=== PATIENT | male | born 1955 | race Caucasian/White ===

== ENCOUNTER 2024-01-05 08:25 | Day surgery (SDC) | payer MEDICARE, BC, SELFPAY ==
[2023-12-20 12:30] VITALS: BMI 36.9
--- NOTE | 2023-12-20 14:42 | HPS.HSE ---
Family Physician
-
Family Physician: NO INTERVIEW UNKNOWN
Chief Complaint
-
Paroxysmal atrial fibrillation.
History of Present Illness
The patient is a 68 year old male presenting today for paroxysmal atrial fibrillation. The patient reports dyspnea on exertion and fatigue secondary to this diagnosis. He has undergone 3 previously failed cardioversions, with the last
occurring in September 2023. He is on current pharmacological therapy with Carvedilol. He has been compliant with Eliquis for oral anticoagulation. He notes that his symptoms associated with his arrhythmia greatly interfere with his activities of
daily living and overall impact his quality of life. He also hopes to be on as little medication as possible in the near future. Given all this, he would like to proceed with pulmonary vein isolation at this time. He denies any current complaints
today such as chest pain, shortness of breath at rest, palpitations, nausea, vomiting, diarrhea, lightheadedness, dizziness, cough, sore throat, or fever.
Medical History
Past Medical History
Past Medical History: Reports Other
Additional Past Medical History:
1. Paroxysmal atrial fibrillation, status post cardioversion x3; pharmacological therapy with Carvedilol, oral anticoagulation with Eliquis.
2. Hypertension.
3. Hyperlipidemia.
4. Ventricular fibrillation, status post single chamber ICD implantation 2010 and subsequent generator change 2017.
5. Coronary artery disease, status post PCI with bare metal stent to LAD 2010.
6. Chronic heart failure, reduced ejection fraction.
7. Ischemic cardiomyopathy.
8. Trivial anterior pericardial effusion on echocardiogram 04/2023.
9. Chronic venous insufficiency.
10. 2 mm calcified granuloma of right lower lobe per chest CT 12/20/2023.
11. Obstructive sleep apnea, non-compliant with device.
12. Non-insulin dependent diabetes.
13. Mild renal insufficiency.
14. Cholelithiasis, asymptomatic.
15. Colon cancer, 2014, status post partial colectomy.
16. Peripheral neuropathy.
17. Sciatica.
18. Degenerative disc disease.
19. Skin cancer, status post remote excision x2.
20. History of recurrent bilateral lower extremity cellulitis.
21. Mild thrombocytopenia.
22. Obesity, BMI 36.9.
Past Surgical History: Reports Other
Additional Past Surgical History:
1. Cardioversion x3.
2. Single chamber ICD insertion.
3. ICD generator change.
4. PCI with bare metal stent to LAD.
5. Partial colectomy.
6. Skin cancer excision x2.
7. Epidural steroid injections.
8. Multiple colonoscopies.
Social History
Tobacco: Non-smoker
Alcohol: None
Personal:
Living: With Family (in a 1 story home. )
Family History
Family History: Not pertinent
Allergies / Home Medications
Allergy/Medication List:
Home medications:
1. Eliquis 5 mg p.o. twice a day.
2. Aspirin 81 mg p.o. daily.
3. Atorvastatin 40 mg p.o. at bedtime.
4. Carvedilol 12.5 mg p.o. twice a day.
5. Eplerenone 25 mg p.o. at noon.
6. Furosemide 20 mg p.o. daily.
7. Metformin 500 mg p.o. twice a day.
8. Entresto 97-103 mg, 1 tablet p.o. twice a day.
Allergies: Neosporin.
Review of Systems
-
A 12 point ROS was completed and negative except as noted: Yes
Physical Exam
Vital Signs
Blood pressure 133/97. Heart rate 71. Respirations 18. Pulse ox 99% on room air.
Height 6 feet. Weight 123.3 kg. BMI 36.9.
Physical Exam
General: Well Developed, Well Nourished and No Apparent Distress
HEENT: NormoCephalic, Moist mucous membranes, Atraumatic and PERRLA
Respiratory: Clear
Cardiac: Irregular Rhythm
GI: Soft, Non Tender, Non Distended and Other (Obese. )
Musculoskeletal: Edema, Left Lower Extremity (+1), Edema, Right Lower Extremity (+1), Normal Gait & Station and Other (Venous stasis changes noted to bilateral lower extremities. No open wounds present. Calves soft and non-tender to palpation. )
Skin: Warm and Dry
Neuro: AO x 3 and Nonfocal/grossly intact
Laboratory Results
-
DIAGNOSTIC STUDIES as of 12/20/2023: White blood cell count 7.5. Hemoglobin 15.0. Platelet count 127,000. PT 16.6. INR 1.33. Sodium 137. Potassium 4.5. BUN 25. Creatinine 1.3. Glucose 200. Calcium 9.9. Magnesium 1.9. AST 25. ALT 29. Albumin 4.2.
Blood type O positive.
EKG 12/20/2023: Atrial fibrillation. Low voltage QRS. Poor R wave progression.
Chest CT 12/20/2023: Normal, conventional pulmonary venous anatomy. Moderate atherosclerotic vascular disease. No left atrial filling defect/thrombus identified.
Echocardiogram 04/26/2023: Technically difficult and limited study. Dilated left ventricle with severe left ventricular dysfunction with wall motion abnormalities as described. Estimated EF in the range of 20-25%. Indeterminate diastolic filling
pattern due to atrial fibrillation. Severe left atrial and moderate right atrial enlargement. No significant valvular disease. Trivial anterior pericardial effusion.
Impression/Plan
-
IMPRESSION/PLAN:
1. Paroxysmal atrial fibrillation: The patient is in need of pulmonary vein isolation with Dr. Kristofer Koch on 01/05/2024. The benefits and risks of the procedure have been explained to the patient. The patient understands these risks and wishes to
proceed. He will not be required to undergo a pre-procedural transesophageal echocardiogram as he has been complaint with his home oral anticoagulation. He is aware to hold all his medications the morning of his procedure.
[2024-01-05] VITALS (15 sets, daily range): BP systolic 100–143; BP diastolic 64–104; BMI 36.7
[2024-01-05 09:29] LABS: Glucose - Point of Care 174 mg/dl (70-99)
[2024-01-05 11:54] LABS: ACT-LR - POC 302 Seconds (116-155)
[2024-01-05 12:10] LABS: ACT-LR - POC 360 Seconds (116-155)
[2024-01-05 12:28] LABS: ACT-LR - POC 356 Seconds (116-155)
[2024-01-05 12:55] LABS: ACT-LR - POC 294 Seconds (116-155)
--- NOTE | 2024-01-05 13:36 | ITS.CL.ABL ---
[facility] - Ablation
Ablation
Procedure Report:
ELECTROPHYSIOLOGY ABLATION STUDY
DATE:: January 05, 2024 REFERRING: Dr. João Riley
INDICATION: Persistent supraventricular tachycardia in the form of atrial fibrillation. As above
HISTORY: See H and P. History of nonischemic cardiomyopathy and a single-chamber ICD with persistent atrial fibrillation and marked atrial dilation
ANTIARRHYTHMIC DRUG: Guideline based medical therapy for heart failure and no current intermittent therapy
PRE-PROCEDURE BILL: No atrial thrombus
PRESENTING RHYTHM: Atrial fibrillation
'TIME-OUT': called and confirmed.
SEDATION/ANESTHESIA: provided via the anesthesia department using general anesthesia (LMA).
INTRAVENOUS/ARTERIAL ACCESS:
Right femoral venous - 8Fr
Left femoral venous - 8 Fr, 6 Fr
Ultrasound guidance for bilateral femoral vein access was utilized by me to obtain access with demonstration of normal anatomy
CHADS-VASC Score:
HAS-Bled Score
PROCEDURE:
1. A decapolar CS catheter was placed within the CS for mapping and pacing. This was also used as the reference catheter for the 3-D map. The patient had marked left and right atrial enlargement and hypotension throughout the procedure from
anesthesia which was answered with dopamine 5 mics and Isidro-Synephrine maintaining a MAP greater than 60 mmHg. Left atrial pressure was 20 after infusion of 500 cc of normal saline
2. The intracardiac ultrasound catheter was positioned in the RA to identify the FO for targeting of transseptal puncture, assist in identification of the pulmonary vein ostia, monitoring pre and post ablation pulmonary vein flow velocities,
monitoring for 'bubble' formation during RF application as a sign of thermal injury, and to monitor for pericardial effusion during mapping and ablation procedure. Left atrial size, LV ejection fraction, and pulmonary vein flows were monitored
pre and post ablation procedure. The other valves were inspected and found to be free of significant regurgitation or stenosis.
3. Half of the calculated heparin bolus was administered prior to the first transeptal puncture. Transseptal puncture was performed to diagnose RA and LA pressure so that safety of LA mapping and ablation could be further assessed, and to access
the left atrium and pulmonary veins for mapping and ablation. This entailed advancing an 10 Romanian steerable sheath with dilator and needle apparatus into the superior vena cava and withdrawing both (monitoring intracardiac ultrasound, fluoroscopy
and tip pressure) with the tip oriented toward the atrial septum. The fossa ovalis was engaged (indicated by sudden displacement of the sheath tip as well as tenting of the fossa seen on intracardiac ultrasound). Left atrial access required a pass
with the Brockenbrough needle extended. Left atrial catheter position was confirmed by pressure monitoring (RA mean pressure 8 mm Hg and LA mean presure 14 mm Hg), LA saturation (99%), as well as fluoroscopy. The sheath was advanced over the
dilator and positioned in the left atrium. This procedure was repeated for the Agilis sheath. The remainder of the calculated heparin bolus was administered and heparin was
infused to maintain ACT at 300 -350 seconds throughout the case.
4. RA pacing was performed via the proximal decapolar poles and LA pacing was performed via the distal decapolr poles.
5. A quadrapolar catheter was first positioned at the His position for His Bundle recording which was tagged via the 3-D Navex sytem, and then passed to the RVA for RV pacing and recording.
6. The multipolar catheter and the pulsed light catheter placed in each of the LIPV, LSPV, RSPV and the RIPV.
7. Next, a 3-D map was created using Navex. A 3-D reconstructed CT image was compared to the 3-D Navex map to assist in anatomic interpretation, mapping and ablation. The CT image and the NavX image were fused.
8. Pulmonary vein and extrapulmonary lesions were given with the 4 pulmonary veins addressed ostially and anteriorly and the entire left atrial posterior wall addressed as extrapulmonary and substrate. Multipolar mapping after initial pass
demonstrated the left veins posterior wall and right supra pulmonary veins isolated with continued connection at the inferior and posterior portion of the right for pulmonary vein. The pulsed light catheter was brought back to this region and
additional deliveries rendered the vein isolated with entrance and exit block confirmed. Initial rhythm was atrial fibrillation which was converted to sinus rhythm with short salvos of multifocal atrial tachycardia after conversion to sinus rhythm
and eventually sinus rhythm with isolation of all 4 pulmonary veins and the posterior wall. The patient was noninducible for other tachyarrhythmias.
9. Relatively normal sinus node function and stable ICD function with therapies turned back on at the end of the procedure. Resting heart rates in sinus rhythm in the 50-60 range.
TOTAL FLOURO TIME: 32 minutes 243 mGy
TOTAL RF DURATION: 0 minutes
REVERSAL OF HEPARIN: 30 mg of protamine, slow IV administration. The Vascade device was deployed at the right femoral vein but as there was not adequate hemostasis this was removed and a [id number] stitch was placed in the right femoral vein
access site as well as left femoral vein access site. This in addition to manual pressure brought about hemostasis.
COMPLICATIONS:
None
Intracardiac US shows no pericardial effusion post ablation.
SUMMARY:
Complex left atrial mapping and ablation.
Isolation of all 4 pulmonary veins and left atrial posterior wall as above.
RECOMMENDATIONS:
1. Admit to monitored bed.
2. Resume anticoagulation
3. With discontinuation of general anesthesia the patient had much improved hemodynamics and were able to wean the Isidro-Synephrine and dopamine drips to off at extubation
4. Close monitoring and consider same-day discharge if meets the parameters of her same-day discharge protocol otherwise he will remain overnight
Copy to: Dr. João Riley
[2024-01-05 14:27] LABS: Glucose - Point of Care 232 mg/dl (70-99)
[2024-01-05] MEDS: LASIX 20 MG IV (16:20)
--- NOTE | 2024-01-05 17:05 | W.PN.UPDATE ---
Update Note
Progress Note Update
68 yo WM s/p PVI (same day). He feels good, no cp, sob, italo diet, voiding, EKG SR 1deg AVB, b/l groins c/d/i F08 in place. He will resume Eliquis tonight at home. Activity restrictions reviewed. He will f/u Dr. Riley in 2 mo. He is for dc/ home
after 6p if groin stable.
SUMMARY:
Complex left atrial mapping and ablation.
Isolation of all 4 pulmonary veins and left atrial posterior wall as above.
RECOMMENDATIONS:
1. Admit to monitored bed.
2. Resume anticoagulation
3. With discontinuation of general anesthesia the patient had much improved hemodynamics and were able to wean the Isidro-Synephrine and dopamine drips to off at extubation
4. Close monitoring and consider same-day discharge if meets the parameters of her same-day discharge protocol otherwise he will remain overnight
Copy to: Dr. João Riley
== END 2024-01-05 18:05 | disposition home or self-care (01) ==
LOC: CATH 08:25
PROVIDERS: ATTENDING PHYSICIAN Internal Medicine Cardiovascular Disease; FAMILY PHYSICIAN Family Medicine
DX: I48.19 Other persistent atrial fibrillation (principal); I47.10 Supraventricular tachycardia, unspecified; I11.0 Hypertensive heart disease with heart failure; I50.22 Chronic systolic (congestive) heart failure; I25.10 Atherosclerotic heart disease of native coronary artery without angina pectoris; Z95.5 Presence of coronary angioplasty implant and graft; I25.5 Ischemic cardiomyopathy; E78.5 Hyperlipidemia, unspecified; G47.33 Obstructive sleep apnea (adult) (pediatric); E11.9 Type 2 diabetes mellitus without complications; I87.2 Venous insufficiency (chronic) (peripheral); Z85.038 Personal history of other malignant neoplasm of large intestine; Z85.828 Personal history of other malignant neoplasm of skin; Z95.810 Presence of automatic (implantable) cardiac defibrillator; E66.9 Obesity, unspecified; Z68.36 Body mass index [BMI] 36.0-36.9, adult; Z79.01 Long term (current) use of anticoagulants; Z79.82 Long term (current) use of aspirin; Z79.84 Long term (current) use of oral hypoglycemic drugs
CPT/HCPCS: C1732; C1894; C1769; C1730; C1733; C1759; C1892; 76937; 82962; 85347; 86900; 86901; 93005; 93656; C1760

== ENCOUNTER 2024-06-19 05:50 | Day surgery (SDC) | payer MEDICARE, BC, SELFPAY ==
[2024-06-11 11:09] VITALS: BMI 38.1
[2024-06-19] VITALS (11 sets, daily range): BP systolic 101–133; BP diastolic 61–87; BMI 36.9
[2024-06-19 06:42] LABS: Glucose - Point of Care 191 mg/dl (70-99)
[2024-06-19] MEDS: TYLENOL 1000 MG PO (07:12)
[2024-06-19 08:55] LABS: ACT-LR - POC 334 Seconds (116-155)
[2024-06-19 09:02] LABS: Glucose - Point of Care 173 mg/dl (70-99)
[2024-06-19 09:55] LABS: ACT-LR - POC 356 Seconds (116-155)
--- NOTE | 2024-06-19 10:07 | ITS.CL.ABL ---
[facility] - Ablation
Ablation
Procedure Report:
ELECTROPHYSIOLOGY ABLATION STUDY
�
DATE:: June 19, 2024�����������������������������REFERRING: Dr. Miguel Kinsey
�
INDICATION: Persistent supraventricular tachycardia in the form of atrial fibrillation.��Prior pulsed field ablation in November 2023 with PVI plus left atrial posterior wall. Presents with atypical flutter which is symptomatic and also has a
tachycardia due to cardiomyopathy
�
HISTORY: See H and P.��As above
�
ANTIARRHYTHMIC DRUG: Carvedilol
�
PRE-PROCEDURE BILL: No atrial thrombus on intracardiac ultrasound
�
PRESENTING RHYTHM: Atrial flutter which was determined to be typical 290 ms
�
'TIME-OUT':��called and confirmed.
�
SEDATION/ANESTHESIA:��provided via the anesthesia department using general anesthesia (LMA).
�
INTRAVENOUS/ARTERIAL ACCESS:
Right femoral venous - 8Fr
Left femoral venous - 8 Fr, 6 Fr
Ultrasound guidance for bilateral femoral vein access was utilized by me to obtain access with demonstration of normal anatomy
CHADS-VASC Score:
�
HAS-Bled Score
�
PROCEDURE:
1.��A decapolar CS catheter was placed within the CS for mapping and pacing.��This was also used as the reference catheter for the 3-D map. The patient presented in atrial flutter. 290 ms. Grid map was performed which demonstrated
counterclockwise activation about the tricuspid valve and the entire cycle length in the right atrium. Entrainment mapping from the lateral isthmus and septal isthmus demonstrated macro reentry about the tricuspid valve with PPI equal to
tachycardia cycle length. A 4 mm tactic cath catheter was brought at 30 W, 42 degrees and 15-second lesions from the tricuspid annulus back towards the IVC which slowed and then terminated tachycardia in a deep mid isthmus pouch. Bidirectional
block was achieved intra isthmus conduction time to 10 ms.
�
2. The intracardiac ultrasound catheter was positioned in the RA to identify the FO for targeting of transseptal puncture, assist��in identification of the pulmonary vein ostia, monitoring pre and post ablation pulmonary vein flow velocities,
monitoring for 'bubble' formation during RF application as a sign of thermal injury,��and to monitor for pericardial effusion during mapping and ablation procedure.���Left atrial size, LV ejection fraction, and pulmonary vein flows were monitored
pre and post ablation procedure. The other valves were inspected and found to be free of significant regurgitation or stenosis.
�
3.��Half of the calculated heparin bolus was administered prior to the first transeptal puncture.��Transseptal puncture was performed to diagnose RA and LA pressure so that safety of LA mapping and ablation could be further assessed, and to access
the left atrium and pulmonary veins for mapping and ablation.��This entailed advancing an 8 Fr SL-1 sheath with dilator into the superior vena cava and withdrawing both (monitoring intracardiac ultrasound, fluoroscopy and tip pressure) with the tip
oriented toward the atrial septum.��The fossa ovalis was engaged (indicated by sudden displacement of the sheath tip as well as tenting of the fossa seen on intracardiac ultrasound).��Left atrial access required a pass with the Brockenbrough needle
extended.��Left atrial catheter position was confirmed by pressure monitoring (RA mean pressure 8 mm Hg and LA mean presure 14 mm Hg), LA saturation ( 99%),��as well as fluoroscopy.��The sheath was advanced over the dilator and positioned in the
left atrium.��This procedure was repeated for the Agilis sheath.��The remainder of the calculated heparin bolus was administered and heparin was
infused to maintain ACT at 300 -350 seconds throughout the case.
�
4.��RA pacing was performed via the proximal decapolar poles and LA pacing was performed via the distal decapolr poles.
�
5. A quadrapolar catheter was first positioned at the His position for His Bundle recording which was tagged via the 3-D Navex sytem, and then passed to the RVA for RV pacing and recording.
�
6. The focal connection at the left kya and posterior wall outside the left veins. Distal right severe pulmonary vein connection and inferior posterior connection of the kya of the right inferior pulmonary vein. The inferior portion of the
posterior wall was relatively intact with reconnection at the mid posterior wall and roof towards the right superior pulmonary vein and the grid was interrogated into each of the LIPV, LSPV, RSPV and the RIPV.��
�
7.��Next, a 3-D map was created using Navex.���A 3-D reconstructed CT image was compared to the 3-D Navex map to assist in anatomic interpretation, mapping and ablation.��The CT image and the NavX image were fused.
�
8. After waiting period we interrogated the left atrium after transseptal puncture which demonstrated connections as above. The fair drive sheath was brought over a ProTrac wire to the left atrium and the Norma pulse catheter was brought to the
left atrium with deliveries in the all of basket and flower poses to each of the 4 pulmonary veins and the posterior wall demonstrating entrance and exit block in all 4 pulmonary veins plus electrical isolation of the left atrial posterior wall.
9. Device therapies were turned back on at the end of the procedure with the patient at VVI 40 bpm and VT zone 180 and VF zone 200. Ejection fraction was 25 to 30% in atrial flutter and 30 to 35% in sinus rhythm.
�
TOTAL FLOURO TIME: 18.7 minutes
�
TOTAL RF DURATION: 0 minutes
�
REVERSAL OF HEPARIN: 45 mg of protamine, slow IV administration
�
COMPLICATIONS:
None
Intracardiac US shows no pericardial effusion post ablation.
�
SUMMARY:��
Complex left atrial mapping and ablation.
Typical atrial flutter status post termination with radiofrequency energy and bidirectional block as well as reisolation of all 4 pulmonary veins and left atrial posterior wall with the Norma pulse catheter.
�
RECOMMENDATIONS:
1. Admit 4 hours
2. Resume anticoagulation
3.��Out of bed 4 hours
4.��Consider same-day discharge
�
Copy to: Dr. Jose Kinsey
�
[2024-06-19 10:52] LABS: Glucose - Point of Care 178 mg/dl (70-99)
[2024-06-19 15:41] LABS: ACT-LR - POC > 397 Seconds (116-155)
--- NOTE | 2024-06-19 16:03 | W.PN.UPDATE ---
Update Note
Progress Note Update
Pt seen post AFlutter RFA with reisolation PFA of 4 PV and LAPW. Bilat groin sites without ht/bleeding, non tender. OOB ambulating, urinating without difficulty. Post EKG NSR w/1st deg AVB, no acute changes. Resume Eliquis tonight. Followup with
Osvaldo as scheduled. Home today if groin site/tele remain stable.
== END 2024-06-19 15:00 | disposition home or self-care (01) ==
LOC: CATH 05:50
PROVIDERS: ATTENDING PHYSICIAN Internal Medicine Cardiovascular Disease; FAMILY PHYSICIAN Family Medicine; OTHER PHYSICIAN Internal Medicine Cardiovascular Disease
DX: I48.0 Paroxysmal atrial fibrillation (principal); I48.3 Typical atrial flutter; Z79.01 Long term (current) use of anticoagulants; I10 Essential (primary) hypertension; E78.5 Hyperlipidemia, unspecified; I25.5 Ischemic cardiomyopathy; G47.33 Obstructive sleep apnea (adult) (pediatric); Z95.810 Presence of automatic (implantable) cardiac defibrillator; I49.01 Ventricular fibrillation; E11.9 Type 2 diabetes mellitus without complications
CPT/HCPCS: C1732; C1894; C1730; C1769; C2630; C1759; C1892; 82962; 85347; 93005; 93655; 93656; 93657; C1733; C1766